=== PATIENT | female | born 1945 | race Caucasian/White ===

== ENCOUNTER 2017-04-25 04:28 | Emergency (ER) | payer OTHER, MEDICARE ==
[~2017-04-25] VITALS: Ht 160 cm; Wt 72.7 kg
[2017-04-25 04:32] VITALS: BP 177/56; PULSE 77; RESP 18; O2SAT 98
--- NOTE | 2017-04-25 04:41 | ED.REPORT ---
HPI-Abd Pain F 40 and Over Date of Service Apr 25, 2017 ED Provider: Enzo Escobar MD A 71 year old female with a history of diabetes and hypertension presents to the ED complaining of left flank pain. She began experiencing this pain at approximately 17:00 last night, in addition to nausea and vomiting. She denies hematochezia, melena, hematuria, urinary urgency or urinary frequency. The pt suspects that the pain is originating in her kidney, but denies any history of kidney stones. Nursing Notes Stated Complaint: KIDNEY PAIN Chief Complaint: Female Abdominal Pain Nursing Notes Reviewed: Yes Allergies: Coded Allergies: No Known Allergies (Unverified , 04/25/17) Scheduled Famotidine (Pepcid) 20 Mg Tablet 20 MG PO BID Scheduled PRN Naproxen (Naprosyn) 500 Mg Tablet 500 MG PO BID PRN PRN For Pain General Time Seen by MD: 04:41 Chief Complaint Flank pain left Hx Obtained From: Patient Arrived By: Walk-in Sudden in Onset?: No Onset Occurred: 9 - 12 hours ago Symptom Duration: Since onset Recent Healthcare: Recent doctor visit Similar Sx Previous: No Past Medical History Past Medical History Notes: metformin 1000 mg glipizide 5m atorvastatin 20m lisinopril 10 mg Past Medical History Reports: Diabetes mellitus, Hypertension Past Surgical History shoulder Smoking History Unknown if Ever Smoker Social History Other Social History: Good social support Ambulatory Status Independent Review of Systems Respiratory: Denies: Non-productive cough, Shortness of breath Cardiovascular: Denies: Chest pain GI: Reports: Nausea, Vomiting, Denies: Abdominal pain, Constipation, Diarrhea Female: Reports: Flank pain, Denies: Hematuria, Urinary frequency, Urinary urgency Musculoskeletal: Denies: Neck pain Complete sys rev & neg: except as marked. Physical Exam Vital Signs Vital Signs (First) Date Time Temp Pulse Resp B/P Pulse Ox O2 Delivery O2 Flow Rate FiO2 04/25/17 04:32 36.3 77 18 177/56 98 Room Air Initial VS: Reviewed General/Constitutional: Awake, Alert in obvious discomfort Respiratory / Chest: Atraumatic, Breath sounds NL, Breath sounds = bilat, No respiratory distress Cardiovascular: Heart rate NL, Regular rhythm, Heart sounds NL Abdomen: Atraumatic, Soft, Non-tender Back: Atraumatic, Full range of motion, No CVA tenderness Head / Eyes: Atraumatic, Normocephalic, PERRL, EOMI ENT: Atraumatic, Airway patent, Mucous membranes moist Skin: Atraumatic, Color NL, No rash, Warm, Dry Neurologic: Oriented X3, Speech NL, No motor deficits, No sensory deficits Neck: Atraumatic, Supple, Full range of motion Upper Extremity / MS: Atraumatic, Full range of motion Lower Extremity / Pelvis / MS: Atraumatic, Full range of motion Psychiatric: Affect NL, Mood NL Interpretation & Diagnostics Lab Results Interpretation Result Diagram: 04/25/17 0455 04/25/17 0455 Test 04/25/17 04:40 04/25/17 04:55 Urine Color Yellow (YELLOW) Urine Appearance Clear (CLEAR,HAZY) Urine pH 6.0 (5.0-8.0) Urine Specific [place] 1.010 (1.003-1.035) Urine Protein Negativemg/dL (NEG,TRACE) Urine Glucose (UA) 500mg/dL (NEGATIVE) Urine Ketones 15mg/dL (NEGATIVE) Urine Occult Blood Large (NEGATIVE) Urine Nitrite Negative (NEGATIVE) Urine Bilirubin Negative (NEGATIVE) Urine Urobilinogen Normalmg/dL (NORMAL) Urine Leukocyte Esterase Negative (NEGATIVE) Urine RBC 11-50/hpf (0-2) Urine WBC 0-5/hpf (0-5) Urine Epithelial Cells Few/hpf (NONE-MOD) Urine Crystals None seen (NONE SEEN) Urine Bacteria None/hpf (NONE-FEW) Urine Hyaline Casts None/lpf (NONE) Urine Granular Casts None seen (NONE SEEN) Urine Waxy Casts None seen (NONE SEEN) Urine Red Blood Cell Casts None seen (NONE SEEN) Urine White Blood Cell Casts None seen (NONE SEEN) Urine Mucus None seen (None Seen) Urine Trichomonas None seen (NONE SEEN) Urine Yeast None (NONE SEEN) Urinalysis Comment None Urine Culture Reflexed Not indicated White Blood Count 16.6th/mm3 (3.8-10.1) Red Blood Count 4.64mil/mm3 (3.90-5.20) Hemoglobin 13.5g/dL (12.0-15.6) Hematocrit 39.3% (35.0-46.0) Mean Corpuscular Volume 84.7fL (81-100) Mean Corpuscular Hemoglobin 29.1pg (27.0-35.0) Mean Corpuscular Hemoglobin Concent 34.4% (32.0-37.0) Red Cell Distribution Width 12.9% (12.3-15.4) Platelet Count 294bil/L (150-400) Neutrophils (%) (Auto) 86.2% (40-74) Lymphocytes (%) (Auto) 8.1% (14-46) Monocytes (%) (Auto) 4.9% (4-12) Eosinophils (%) (Auto) 0.3% (0-5) Basophils (%) (Auto) 0.2% (0-3) Prothrombin Time 9.6sec (8.1-12.5) Prothromb Time International Ratio 0.90ratio Sodium Level 138mEq/L (134-144) Potassium Level 3.9mEq/L (3.5-5.2) Chloride Level 101mEq/L (97-108) Carbon Dioxide Level 20mmol/L (18-29) Blood Urea Nitrogen 23mg/dL (8-27) Creatinine 0.57mg/dL (0.57-1.00) Estimat Glomerular Filtration Rate 150mL/min (>59) Glucose Level 239mg/dL (60-99) Calcium Level 9.4mg/dL (8.5-10.1) Magnesium Level 1.9mg/dL (1.6-2.6) Total Bilirubin 0.5mg/dL (0.0-1.2) Aspartate Amino Transf (AST/SGOT) 11U/L (0-50) Alanine Aminotransferase (ALT/SGPT) 13U/L (0-32) Alkaline Phosphatase 86U/L (25-165) Total Protein 7.3g/dL (6.4-8.4) Albumin 4.5g/dL (3.4-5.0) Lipase 18U/L (13-60) CT Abd / Pelvis Interpretation CONCLUSION: Mild left hydronephrosis and hydroureter, likely secondary to a 1 mm stone in the left distal ureter near the UVJ. Additional 1 mm nonobstructing left lower pole renal stone. Interpretation / Wet Read by: Interpret - Radiologist Re-Eval/Medical Decision Med Decision/Clinical Course 71-year-old presents with relatively sudden onset of a left lower back pain while asleep. No resolution overnight. Urinalysis shows hematuria, and a noncontrast CT shows a 1 mm stone at the UVJ with some mild hydronephrosis above that. No other significant findings. Discharge now with Naprosyn, Vicodin, Zofran, and plan for follow-up with PCP. Unlikely to require urologic intervention with a 1 mm stone about to pass. Source of Hx: Old records Re-Evaluation/Progress : Time of Eval: 05:53 Patient Status: Condition improved Re-Evaluation/Progress Note: Pt rechecked, who is resting comfortably. The diagnosis and plan for discharge are discussed. The pt understands and agrees with the plan. All questions are addressed at this time. Counseled Regarding: Diagnosis, Lab results, Need for follow-up, When/why to return to ED Discharge & Departure Primary Impression: Ureteral colic Disposition: Home Discharge Condition All VS Reviewed: Yes Condition: Stable Patient Instructions: Renal Colic (ED) Additional Instructions: You have a very tiny stone just about passed in the bladder, causing some swelling and accounting for your pain. Begin Naprosyn twice daily if needed for pain. Take Vicodin sparingly if additional needed for pain. Take Pepcid twice daily as long as you are taking Naprosyn. Drink plenty of fluids and stay well-hydrated. Call your doctor in the office this morning for follow-up this week. It is unlikely you will need a urologic intervention for a small stone such as this one. Referrals: Jes Conner DO (PCP) Scribe Attestation Portions of this note were transcribed by Brie Jones. I, Dr. Escobar personally performed the history, physical exam and medical decision-making; I reviewed and confirmed the accuracy of the information in the transcribed note. copies to: Jes Conner Christopher W MD Apr 25, 2017 04:41 BRIE JONES Apr 25, 2017 04:57
[2017-04-25 04:52] LABS: APPEARANCE,URINE CLEAR (CLEAR,HAZY); COLOR,URINE YELLOW (YELLOW); OCCULT BLOOD,URINE LARGE (NEGATIVE); UROBILINOGEN,URINE NORMAL (NORMAL)
[2017-04-25] MEDS ORDERED: 0.9% Sodium Chloride 1,000 ML IV ONE (04:59)
[2017-04-25] MEDS ORDERED: Ondansetron 2 mg/mL 2 mL Inj IVPUSH ONE (05:00)
[2017-04-25 05:07] LABS: BASOPHILS % (AUTO) 0.2 % (0-3); EOSINOPHILS % (AUTO) 0.3 % (0-5); MONOCYTES % (AUTO) 4.9 % (4-12); Mean Corpuscular Hemoglobin 29.1 pg (27.0-35.0); Mean Corpuscular Volume 84.7 fL (81-100); NEUTROPHILS % (AUTO) 86.2 % (40-74); Platelet Count 294 bil/L (150-400)
[2017-04-25 05:15] LABS: INR 0.9 ratio
[2017-04-25 05:22] LABS: Magnesium 1.9 mg/dL (1.6-2.6)
[2017-04-25] MEDS ORDERED: _HYDROcodone/APAP 5-325 mg Tablet PO PRN (05:55)
[2017-04-25] MEDS ORDERED: _Ondansetron ODT 4 mg Tablet PO PRN (05:55)
[2017-04-25] MEDS ORDERED: NAPR500T PO (05:56)
[2017-04-25] MEDS ORDERED: FAMO20T PO (05:56)
[2017-04-25 06:23] VITALS: BP 154/65; PULSE 81; RESP 18; O2SAT 99
--- NOTE | 2017-04-25 09:52 | DRSVH ---
PROCEDURE: CT KUB ([id number]) INDICATIONS: left flank pain, hematuria TECHNIQUE: Noncontrast 5 mm thick sections acquired from the diaphragms to the symphysis. 5 mm thick coronal an d sagittal reformats were then performed. For radiation dose reduction, the following was used: aut omated exposure control, adjustment of mA and/or kV according to patient size. COMPARISON: None. FINDINGS: Image quality: Excellent. Lung bases: Lung bases are clear. Heart size is normal. Urinary system: Both kidneys are normal in size. 1 mm nonobstructing stone in the inferior pole of the left kidney. There is a 1 mm stone in the distal left ureter causing mild left sided hydronephros is. No right-sided renal stones or hydronephrosis. Bladder wall thickness is normal; no calcified nayeli dder stones. Other solid organs: Liver and spleen are normal in size. Gallbladder is within normal limits. Panc reas is normal in contours. No adrenal nodules. Peritoneum and bowel: Unenhanced bowel loops demonstrate normal wall thickness and caliber. No free fluid or air. The appendix is normal. Nodes and vessels: No retroperitoneal or mesenteric adenopathy by size criteria. Aorta and inferior vena cava are normal in caliber. Abdominal wall: No ventral hernias. Pelvis: No free pelvic fluid. No inguinal hernias or adenopathy. Bones: No suspicious bony lesions. No vertebral body compression fractures. IMPRESSION: 1 mm stone in the distal left ureter causing mild left-sided hydronephrosis. Dictated by: Debby Ceja MD, PhD on 04/25/2017 at 9:47 Approved by: Debby Ceja MD, PhD on 04/25/2017 at 9:51
== END 2017-04-25 06:24 | disposition home or self-care (01) ==
LOC: SED 04:28
DX: N23 Unspecified renal colic (principal); E11.9 Type 2 diabetes mellitus without complications; I10 Essential (primary) hypertension; Z79.84 Long term (current) use of oral hypoglycemic drugs
CPT/HCPCS: 36415; 74176; 80053; 81000; 83690; 83735; 85025; 85610; 96361; 96374; 96375; 99285; J1885; J2405; J7030